=== PATIENT | female | born 1995 | race Two or more races ===

== ENCOUNTER 2019-01-14 08:07 | Emergency (ER) | payer SELFPAY ==
[~2019-01-14] VITALS: Ht 160 cm; Wt 68.0 kg
--- NOTE | 2019-01-14 08:44 | PHYS DOC ---
Past Medical History Past Medical History: No Pertinent History Past Surgical History: Appendectomy Alcohol Use: None Drug Use: None Adult General Chief Complaint Chief Complaint: ABDOMINAL PAIN IN HPI HPI 24-year-old female presents to ER via POV for complaints of vaginal bleeding and lower abdominal pain. Patient states last night she had sexual intercourse and following she had light spotting. She denies any pain during intercourse. Patient states this morning at 5 AM she woke up and has had increased vaginal bleeding going through 2 pads per hour. Patient states she continues to have lower abdominal/upper pubic pain. Patient denies any fever, urinary symptoms, or nausea and vomiting. Patient states her LMP was in September. Patient states she has gone to a clinic and had labs and has paperwork showing her quantitative was 2712 on 01/10. Patient is 1 para 0. Review of Systems Review of Systems Constitutional: Denies fever or chills [] Eyes: Denies change in visual acuity, redness, or eye pain [] HENT: Denies nasal congestion or sore throat [] Respiratory: Denies cough or shortness of breath [] Cardiovascular: No additional information not addressed in HPI [] GI: Denies nausea, vomiting, bloody stools or diarrhea. Reports suprapubic/low abd pain : Denies urinary sxs. Reports vaginal bleeding Musculoskeletal: Denies back pain or joint pain [] Integument: Denies rash or skin lesions [] Neurologic: Denies headache, focal weakness or sensory changes. Denies dizziness All other systems were reviewed and found to be within normal limits, except as documented in this note. Allergies Allergies Allergies Coded Allergies Type Severity Reaction Last Updated Verified No Known Drug Allergies 01/14/19 No Physical Exam Physical Exam Constitutional: Well developed, well nourished, no acute distress, non-toxic appearance. [] HENT: Normocephalic, atraumatic, oropharynx moist, nose normal. [] Eyes: Pupils equal, conjunctiva normal, no discharge. [] Neck: Normal range of motion, no tenderness, supple, no stridor. [] Cardiovascular: Heart rate regular rhythm, no murmur [] Lungs & Thorax: Bilateral breath sounds clear to auscultation- resp. equal/nonlabored Abdomen: Bowel sounds normal, soft-no distention or rigidity, tender suprapubic area, no rebound tenderness Skin: Warm, dry, no erythema, no rash. [] Back: No tenderness, no CVA tenderness. [] Extremities: No tenderness, no cyanosis, no clubbing, ROM intact, no edema. [] Neurologic: Alert and oriented X 3, normal motor function, normal sensory function, no focal deficits noted. [] Psychologic: Affect normal, judgement normal, mood normal. [] Pelvic Exam: GERSON Pink present 0900 External Genitalia: Normal Skin- no rash or lesions Speculum: Normal vaginal mucosa, and exam patient had tissue in the cervical os opening. Forceps were used to remove tissue and cervix closed. Dark red blood in vaginal vault. Following cervical os closing no active vaginal bleeding Current Patient Data Vital Signs Vital Signs Date Time Temp Pulse Resp B/P (MAP) Pulse Ox O2 Delivery O2 Flow Rate FiO2 01/14/19 10:00 76 18 109/67 (81) 100 Room Air 01/14/19 08:28 98.1 98.1 Lab Values Laboratory Tests Test 01/14/19 08:46 01/14/19 10:30 White Blood Count 9.4 x10^3/uL (4.0-11.0) Red Blood Count 5.13 x10^6/uL (3.50-5.40) Hemoglobin 15.0 g/dL (12.0-15.5) Hematocrit 45.4 % (36.0-47.0) Mean Corpuscular Volume 88 fL (79-100) Mean Corpuscular Hemoglobin 29 pg (25-35) Mean Corpuscular Hemoglobin Concent 33 g/dL (31-37) Red Cell Distribution Width 12.8 % (11.5-14.5) Platelet Count 230 x10^3/uL (140-400) Neutrophils (%) (Auto) 66 % (31-73) Lymphocytes (%) (Auto) 27 % (24-48) Monocytes (%) (Auto) 6 % (0-9) Eosinophils (%) (Auto) 1 % (0-3) Basophils (%) (Auto) 1 % (0-3) Neutrophils # (Auto) 6.2 x10^3uL (1.8-7.7) Lymphocytes # (Auto) 2.5 x10^3/uL (1.0-4.8) Monocytes # (Auto) 0.5 x10^3/uL (0.0-1.1) Eosinophils # (Auto) 0.1 x10^3/uL (0.0-0.7) Basophils # (Auto) 0.1 x10^3/uL (0.0-0.2) Maternal Serum HCG Beta Subunit 1737 mIU/mL (0-5) H Sodium Level 142 mmol/L (136-145) Potassium Level 3.6 mmol/L (3.5-5.1) Chloride Level 104 mmol/L (98-107) Carbon Dioxide Level 25 mmol/L (21-32) Anion Gap 13 (6-14) Blood Urea Nitrogen 6 mg/dL (7-20) L Creatinine 0.7 mg/dL (0.6-1.0) Estimated GFR (Cockcroft-Gault) 103.7 BUN/Creatinine Ratio 9 (6-20) Glucose Level 101 mg/dL (70-99) H Calcium Level 9.1 mg/dL (8.5-10.1) Total Bilirubin 0.3 mg/dL (0.2-1.0) Aspartate Amino Transferase (AST) 22 U/L (15-37) Alanine Aminotransferase (ALT) 30 U/L (14-59) Alkaline Phosphatase 68 U/L (46-116) Total Protein 7.9 g/dL (6.4-8.2) Albumin 4.5 g/dL (3.4-5.0) Albumin/Globulin Ratio 1.3 (1.0-1.7) Urine Collection Type Unknown Urine Color Yellow Urine Clarity Clear Urine pH 7.0 Urine Specific [place] 1.010 Urine Protein Negative mg/dL (NEG-TRACE) Urine Glucose (UA) Negative mg/dL (NEG) Urine Ketones (Stick) Negative mg/dL (NEG) Urine Blood Large (NEG) Urine Nitrite Negative (NEG) Urine Bilirubin Negative (NEG) Urine Urobilinogen Dipstick 0.2 mg/dL (0.2 mg/dL) Urine Leukocyte Esterase Negative (NEG) Urine RBC >40 /HPF (0-2) Urine WBC Occ /HPF (0-4) Urine Squamous Epithelial Cells Few /LPF Urine Bacteria Few /HPF (0-FEW) Urine Mucus Slight /LPF Laboratory Tests 01/14/19 08:46 Laboratory Tests 01/14/19 08:46 EKG EKG [] Radiology/Procedures Radiology/Procedures PROCEDURE: OB <14 WKS W/TV EXAM: Obstetrics sonogram. HISTORY: Vaginal bleeding. Pain. TECHNIQUE: Transabdominal and transvaginal sonographic imaging of the pelvis was performed. COMPARISON: None. FINDINGS: The uterus measures 8.2 x 6.0 x 5.3 cm. The endometrial stripe measures 10 mm in thickness. There is a fluid collection within the lower uterine segment measuring 1.4 x 0.4 x 1.4 cm. The ovaries are normal in size and demonstrate normal blood flow. There is a 2.0 cm dominant left ovarian follicle/follicular cyst. There is no pelvic free fluid. IMPRESSION: 1. Fluid collection within the lower uterine segment, possibly due to an abnormally positioned gestational sac without yolk sac or pole. Correlation with serial beta hCG levels and short-term sonographic follow-up is recommended to exclude an anembryonic or pseudosac in the setting of ectopic gestation. 2. 2.0 cm dominant left ovarian follicle/follicular cyst. Electronically signed by: Flor Perry MD (01/14/2019 10:01 AM) [facility] DICTATED and SIGNED BY: FLOR PERRY MD DATE: 01/14/19 1001 Course & Med Decision Making Course & Med Decision Making Pertinent Labs and Imaging studies reviewed. (See chart for details) During pelvic exam patient's friend states patient had exam done yesterday which she has not inform this provider of during initial discussion. Patient had pelvic exam and reports she had swabs and testing done at her clinic. No swabs done during pelvic exam. Patient was evaluated in the ER for complaints of vaginal bleeding and lower abdominal pain reporting she is approximately 6 weeks . Patient had hCG quantitative obtained on 01/10/19 with results of 2712- today's HCG quant down to 1737. H&H stable at 15.0/45.4. US was obtained. Test results were discussed with pt with friend at bedside. During pelvic exam pt was found to have tissue in cervical os which was sent to lab with concerns of products of conception. Discussed possible miscarriage at that time with pt as appearance of tissue was not a blood clot. US report of was discussed with pt. he shouldn't advised on need to have hCG quantitative rechecked and 48 hours and for her to have reevaluation and follow-up with her [facility]. Advised patient on vaginal rest until follow-up. Education provided on signs and symptoms to return to ER for and discharge instructions were discussed. Ice to increase fluid intake and Tylenol as needed for pain. Pt is nontoxic in appearance. Patient is denying any lower abdominal pain at time of discharge discussion. Patient is denying any increased vaginal bleeding since pelvic exam. 1055: Translation phone used to discussed all test results with patient. UA was negative for infection large blood noted but patient is still having some vaginal bleeding. Patient is denying any pain or increase in vaginal bleeding. Discussed probable miscarriage with patient and need for recheck of hCG in 2 days with her T[facility]ER. Patient is tearful but her friend at bedside is providing emotional support. Patient is nontoxic in appearance. Discharge instructions were discussed. Pt was A+ blood not [place] candidate. Dragon Disclaimer Dragon Disclaimer This electronic medical record was generated, in whole or in part, using a voice recognition dictation system. Departure Departure Impression: Primary Impression: Threatened in early Additional Impression: Abdominal pain during in first trimester Disposition: 01 HOME, SELF-CARE Condition: STABLE Referrals: UNKNOWN PCP NAME (PCP) Patient Instructions: Abdominal Pain During , Threatened Miscarriage Additional Instructions: Your HCG level was down to 1737 on your labs today. You should have your level rechecked by your [facility] doctor in 48 hours. Tylenol as needed for pain as directed on container. Drink plenty of fluids. Vaginal rest until follow-up with your TOW FE[facility]ER- no insertion of anything into the vagina- no sexual intercourse. Problem Qualifiers NADIYA SCHROEDER APRN January 14, 2019 08:44
[2019-01-14 08:59] LABS: BASO # 0.1 x10^3/uL (0.0-0.2); BASO % 1 % (0-3); EOS # 0.1 x10^3/uL (0.0-0.7); EOS % 1 % (0-3); HEMATOCRIT 45.4 % (36.0-47.0); LYMPH # 2.5 x10^3/uL (1.0-4.8); LYMPH % 27 % (24-48); MEAN CORPUSCULAR HEMOGLOBIN 29 pg (25-35); MEAN CORPUSCULAR HGB CONC 33 g/dL (31-37); MEAN CORPUSCULAR VOLUME 88 fL (79-100); MONO # 0.5 x10^3/uL (0.0-1.1); MONO % 6 % (0-9); NEUT # 6.2 x10^3uL (1.8-7.7); NEUT % 66 % (31-73); PLATELET COUNT 230 x10^3/uL (140-400); RED BLOOD COUNT 5.13 x10^6/uL (3.50-5.40); RED CELL DISTRIBUTION WIDTH 12.8 % (11.5-14.5); WHITE BLOOD COUNT 9.4 x10^3/uL (4.0-11.0)
[2019-01-14 09:06] LABS: CALCIUM 9.1 mg/dL (8.5-10.1); CREATININE 0.7 mg/dL (0.6-1.0); GFR 103.7; POTASSIUM 3.6 mmol/L (3.5-5.1)
[2019-01-14 09:12] LABS: ALBUMIN 4.5 g/dL (3.4-5.0); ALBUMIN/GLOBULIN RATIO 1.3 (1.0-1.7); TOTAL BILIRUBIN 0.3 mg/dL (0.2-1.0); TOTAL PROTEIN 7.9 g/dL (6.4-8.2)
--- NOTE | 2019-01-14 10:03 | RAD ---
EXAM: Obstetrics sonogram. HISTORY: Vaginal bleeding. Pain. TECHNIQUE: Transabdominal and transvaginal sonographic imaging of the pelvis was performed. COMPARISON: None. FINDINGS: The uterus measures 8.2 x 6.0 x 5.3 cm. The endometrial stripe measures 10 mm in thickness. There is a fluid collection within the lower uterine segment measuring 1.4 x 0.4 x 1.4 cm. The ovaries are normal in size and demonstrate normal blood flow. There is a 2.0 cm dominant left ovarian follicle/follicular cyst. There is no pelvic free fluid. IMPRESSION: 1. Fluid collection within the lower uterine segment, possibly due to an abnormally positioned gestational sac without yolk sac or pole. Correlation with serial beta hCG levels and short-term sonographic follow-up is recommended to exclude an anembryonic or pseudosac in the setting of ectopic gestation. 2. 2.0 cm dominant left ovarian follicle/follicular cyst. Electronically signed by: Flor Perry MD (01/14/2019 10:01 AM) [facility]
[2019-01-14 10:53] LABS: BILIRUBIN,URINE NEGATIVE (NEG); CLARITY,URINE CLEAR; COLOR,URINE YELLOW; NITRITE,URINE NEGATIVE (NEG); PROTEIN,URINE NEGATIVE (NEG-TRACE); UROBILINOGEN,URINE 0.2 mg/dL (0.2 mg/dL)
[2019-01-14 11:02] LABS: BACTERIA,URINE FEW /HPF (0-FEW); RBC,URINE >40 /HPF (0-2); SQUAMOUS EPITHELIAL CELL,UR FEW /LPF; WBC,URINE OCC /HPF (0-4)
[2019-01-14 11:30] VITALS: BP 92/50
--- NOTE | 2019-01-18 10:08 | PATHOLOGY ---
[facility] Accession Number: [id number] . 01 Material submitted: . product of conception - PRODUCTS OF CONCEPTION . 02 Diagnosis: Tissue submitted as "products of conception": - Decidual cast showing focal hemorrhage and acute inflammation. . (JP:mm; 01/17/2019) [facility]/01/18/2019 . 02 Comment: The entire specimen is submitted for histologic evaluation. There are no chorionic villi identified. . (JPM:mml; 01/17/2019) . 02 Electronically signed: . Erik Olson MD, Pathologist NPI- [id number] . 01 Gross description: . The specimen is received in formalin, labeled "Mayelin Waters POC", is a disrupted, saccular segment of predominantly hemorrhagic to barron membranous tissue measuring 2.7 x 1.5 x 1.0 cm. Spongy placental tissues, parts or grapelike cystic structures are not discretely identified. The specimen is entirely submitted in A1-A3. ([facility]; 01/16/2019) [facility] . 02 Pathologist provided ICD-10: O02.89 . 02 CPT . 387689 Specimen Comment: A courtesy copy of this report has been sent to Specimen Comment: [phone]. Specimen Comment: Report sent to Performed at: 01 [facility] [address], [place] [id number] MD Mundo Gross MD Phone: [phone] Performed at: 02 [facility] [address] [place], [place] [id number] MD Erik Olson MD Phone: [phone]
== END 2019-01-14 11:58 | disposition home or self-care (01) ==
LOC: EDBD 08:07 → ER 08:07
DX: O20.0 Threatened abortion (principal); Z3A.01 Less than 8 weeks gestation of pregnancy; Z90.89 Acquired absence of other organs
CPT/HCPCS: 36415; 76801; 76817; 80053; 81001; 84702; 85025; 86900; 86901; 88305; 99285-25